=== PATIENT | female | born 1950 | race Caucasian/White ===

== ENCOUNTER 2021-10-11 06:50 | Emergency (ER) | payer MEDICARE, OTHER ==
[~2021-10-11] VITALS: Ht 157.5 cm; Wt 78.2 kg
[~2021-10-11 06:50] MED LIST: ASPI-1052 PO; ATOR20TA PO; CARV6.25 PO; FURO-572 PO; LOSA50TA57 PO
[2021-10-11 07:08] VITALS: BP 107/44
--- NOTE | 2021-10-11 09:12 | NUR ---
CALLED NUMBER ON FILE, PATIENT STATES SHE WENT HOME AND NO LONGER WISHES TO BE SEEN.
--- NOTE | 2021-10-11 09:12 | NUR ---
PATIENT LEFT WITHOUT BEING SEEN BY DR. PERKINS. NO FURTHER CARE PROVIDED FOR PATIENT.
== END 2021-10-11 09:12 | disposition left against medical advice (07) ==
LOC: MED 06:50
DX: J02.9 Acute pharyngitis, unspecified (principal); Z53.21 Procedure and treatment not carried out due to patient leaving prior to being seen by health care provider